=== PATIENT | female | born 1945 | race Two or more races ===

== ENCOUNTER → 2016-10-30 | Outpatient (CLI) | payer MEDICARE, OTHER ==
[2016-10-30 16:27] LABS: Basophils # (auto) 0 uL; Basophils % (auto) 0.2 % (0.0-2.0); DEFINITIVE VIEW TRANSMISSION; Eosinophils # (auto) 0.2 uL; Eosinophils % (auto) 1.4 % (0.0-7.0); Hematocrit 42.8 % (36.0-46.0); Hemoglobin 13.4 g/dL (12.2-16.2); Lymphocytes # (auto) 5.6 uL; Lymphocytes % (auto) 47.1 % (10.0-50.0); Mean Corpuscular Hemoglobin 27.7 pg (28.0-32.0); Mean Corpuscular Hgb Conc. 31.4 g/dL (32.0-36.0); Mean Corpuscular Volume 88.2 fL (80.0-100.0); Mean Platelet Volume 9.1 fL (7.4-10.4); Monocytes # (auto) 0.4 uL; Monocytes % (auto) 3.6 % (0.0-12.0); Neutrophils # (auto) 5.7 uL; Neutrophils % (auto) 47.7 % (37.0-80.0); Platelet Count (auto) 306 10^3/uL (140-450); Urine Bilirubin Negative (Negative); Urine Color Yellow (Yellow); Urine Glucose Normal (Normal); Urine Ketone Negative (Negative); Urine Nitrite Negative (Negative); Urine Urobilinogen Normal (Negative); Urine pH 5.5 (5.0-8.0); White Blood Cell 11.9 10^3/uL (4.4-10.8)
[2016-10-30 16:47] LABS: Urine Blood 1+ /uL (Negative)
[2016-10-30 17:07] LABS: BUN/Creatinine Ratio 34.3; Bilirubin, Direct 0.1 mg/dL (0-0.2); Bilirubin, Total 0.3 mg/dL (0.2-1.0); Calcium 9.7 mg/dL (8.5-10.1); Potassium 3.8 mmol/L (3.5-5.1); Total Protein 7.2 g/dL (6.4-8.2)
== END | disposition home or self-care (01) ==
LOC: LAB 09:15
PROVIDERS: ATTEND Internal Medicine Cardiovascular Disease
DX: I10 Essential (primary) hypertension (principal); E78.00 Pure hypercholesterolemia, unspecified; K74.1 Hepatic sclerosis; E11.9 Type 2 diabetes mellitus without complications; E03.9 Hypothyroidism, unspecified; D64.9 Anemia, unspecified; E55.9 Vitamin D deficiency, unspecified; N39.0 Urinary tract infection, site not specified
CPT/HCPCS: 36415; 80048; 80061; 80076; 81003; 82306; 83036; 84443; 85025

== ENCOUNTER → 2016-11-20 | Outpatient (CLI) | payer MEDICARE, OTHER ==
[2016-11-20 12:58] LABS: Urine Bilirubin Negative (Negative); Urine Blood TRACE /uL (Negative); Urine Color Yellow (Yellow); Urine Glucose Normal (Normal); Urine Ketone Negative (Negative); Urine Nitrite Negative (Negative); Urine Urobilinogen Normal (Negative); Urine pH 5.5 (5.0-8.0)
[2016-11-21 00:39] LABS: Basophils # (auto) 0.1 uL; Basophils % (auto) 0.7 % (0.0-2.0); DEFINITIVE VIEW TRANSMISSION; Eosinophils # (auto) 0.2 uL; Eosinophils % (auto) 1.9 % (0.0-7.0); Hematocrit 40.2 % (36.0-46.0); Hemoglobin 12.2 g/dL (12.2-16.2); Lymphocytes # (auto) 4.1 uL; Lymphocytes % (auto) 44.8 % (10.0-50.0); Mean Corpuscular Hemoglobin 27.2 pg (28.0-32.0); Mean Corpuscular Hgb Conc. 30.5 g/dL (32.0-36.0); Mean Corpuscular Volume 89.3 fL (80.0-100.0); Mean Platelet Volume 8.8 fL (7.4-10.4); Monocytes # (auto) 0.4 uL; Monocytes % (auto) 3.9 % (0.0-12.0); Neutrophils # (auto) 4.5 uL; Neutrophils % (auto) 48.7 % (37.0-80.0); Platelet Count (auto) 271 10^3/uL (140-450); White Blood Cell 9.1 10^3/uL (4.4-10.8)
== END | disposition home or self-care (01) ==
LOC: LAB 08:34
PROVIDERS: ATTEND Internal Medicine Cardiovascular Disease
DX: D64.9 Anemia, unspecified (principal); N39.0 Urinary tract infection, site not specified
CPT/HCPCS: 36415; 81003; 87086

== ENCOUNTER → 2017-01-09 | Outpatient (CLI) | payer MEDICARE, OTHER | END | disposition home or self-care (01) | LOC: HDHVI->DVH 11:55 | PROVIDERS: ATTEND Internal Medicine Cardiovascular Disease | DX: Z01.818 Encounter for other preprocedural examination (principal) | CPT/HCPCS: 93306 ==

== ENCOUNTER → 2017-02-06 | Outpatient (CLI) | payer MEDICARE, OTHER ==
[~2017-02-06] VITALS: Ht 154.9 cm; Wt 130.2 kg
[~2017-02-06] MED LIST: ADENOSINE IV STA; GIVE UN DILUTED IV STA
== END | disposition home or self-care (01) ==
LOC: HDHVI->DVH 09:52
PROVIDERS: ATTEND Internal Medicine Cardiovascular Disease
DX: I10 Essential (primary) hypertension (principal); E78.00 Pure hypercholesterolemia, unspecified; I42.9 Cardiomyopathy, unspecified
CPT/HCPCS: 78452; 93005; 96374; 96375; A9500; J0153

== ENCOUNTER → 2017-05-15 | Outpatient (CLI) | payer MEDICARE, OTHER ==
[2017-05-15 12:17] LABS: Basophils # (auto) 0 uL; Basophils % (auto) 0.3 % (0.0-2.0); CONDITION Y; Eosinophils # (auto) 0.1 uL; Eosinophils % (auto) 1.3 % (0.0-7.0); Hematocrit 40.2 % (36.0-46.0); Hemoglobin 13.5 g/dL (12.2-16.2); Lymphocytes # (auto) 4.1 uL; Lymphocytes % (auto) 45.9 % (10.0-50.0); Mean Corpuscular Hemoglobin 29.2 pg (28.0-32.0); Mean Corpuscular Hgb Conc. 33.5 g/dL (32.0-36.0); Mean Corpuscular Volume 87.3 fL (80.0-100.0); Mean Platelet Volume 9.6 fL (7.4-10.4); Monocytes # (auto) 0.5 uL; Monocytes % (auto) 5.3 % (0.0-12.0); Neutrophils # (auto) 4.2 uL; Neutrophils % (auto) 47.2 % (37.0-80.0); Platelet Count (auto) 257 10^3/uL (140-450); Red Cell Distribution Width 15.3 % (11.6-16.0); Urine Bilirubin Negative (Negative); Urine Color Yellow (Yellow); Urine Glucose Normal (Normal); Urine Ketone Negative (Negative); Urine Nitrite Negative (Negative); Urine pH 5.5 (5.0-8.0)
[2017-05-15 12:41] LABS: Urine Blood 1+ /uL (Negative)
[2017-05-15 12:47] LABS: Albumin 3.6 g/dL (3.4-5.0); BUN/Creatinine Ratio 29.6; Bilirubin, Total 0.3 mg/dL (0.2-1.0); Calcium 9.3 mg/dL (8.5-10.1); Potassium 4.1 mmol/L (3.5-5.1); Total Protein 6.9 g/dL (6.4-8.2)
== END | disposition home or self-care (01) ==
LOC: LAB 08:33
PROVIDERS: ATTEND Internal Medicine Cardiovascular Disease
DX: E78.00 Pure hypercholesterolemia, unspecified (principal); I10 Essential (primary) hypertension; E11.9 Type 2 diabetes mellitus without complications; D64.9 Anemia, unspecified; N39.0 Urinary tract infection, site not specified
CPT/HCPCS: 36415; 80053; 80061; 81003; 83036; 85025; 87086

== ENCOUNTER → 2017-08-27 | Outpatient (CLI) | payer MEDICARE, OTHER ==
[2017-08-27 13:16] LABS: Free T4 (Free Thyroxine) 1.02 ng/dL (0.89-1.76)
== END | disposition home or self-care (01) ==
LOC: LAB 09:04
PROVIDERS: ATTEND Internal Medicine Cardiovascular Disease
DX: E55.9 Vitamin D deficiency, unspecified (principal); D51.9 Vitamin B12 deficiency anemia, unspecified; E03.9 Hypothyroidism, unspecified
CPT/HCPCS: 36415; 82306; 82607; 84439; 84443

== ENCOUNTER → 2017-12-24 | Outpatient (CLI) | payer MEDICARE, OTHER ==
[2017-12-24 12:21] LABS: Albumin 3.9 g/dL (3.4-5.0); BUN/Creatinine Ratio 21.3; Bilirubin, Total 0.5 mg/dL (0.2-1.0); Total Protein 7.2 g/dL (6.4-8.2)
== END | disposition home or self-care (01) ==
LOC: LAB 08:29
PROVIDERS: ATTEND Internal Medicine Cardiovascular Disease
DX: E78.00 Pure hypercholesterolemia, unspecified (principal); I10 Essential (primary) hypertension
CPT/HCPCS: 36415; 80053; 80061

== ENCOUNTER → 2018-09-04 | Outpatient (CLI) | payer MEDICARE, OTHER ==
[2018-09-04 14:52] LABS: Potassium 4.2 mmol/L (3.5-5.1)
[2018-09-04 14:59] LABS: Free T4 (Free Thyroxine) 0.96 ng/dL (0.89-1.76)
[2018-09-04 15:04] LABS: Albumin 3.8 g/dL (3.4-5.0); BUN/Creatinine Ratio 22.4; Bilirubin, Total 0.5 mg/dL (0.2-1.0); Calcium 8.8 mg/dL (8.5-10.1); Total Protein 6.9 g/dL (6.4-8.2)
[2018-09-04 15:09] LABS: Basophils # (auto) 0 uL; Basophils % (auto) 0.3 % (0.0-2.0); Eosinophils # (auto) 0.1 uL; Eosinophils % (auto) 1.7 % (0.0-7.0); Hematocrit 43.2 % (36.0-46.0); Hemoglobin 14.1 g/dL (12.2-16.2); Lymphocytes # (auto) 3.8 uL; Lymphocytes % (auto) 43.1 % (10.0-50.0); Mean Corpuscular Hemoglobin 29.4 pg (28.0-32.0); Mean Corpuscular Hgb Conc. 32.6 g/dL (32.0-36.0); Mean Corpuscular Volume 90.4 fL (80.0-100.0); Monocytes # (auto) 0.4 uL; Monocytes % (auto) 5.1 % (0.0-12.0); Neutrophils # (auto) 4.4 uL; Neutrophils % (auto) 49.8 % (37.0-80.0); Nucleated Red Blood Cells % 0.5 %; Platelet Count (auto) 219 10^3/uL (140-450); Red Blood Cells 4.78 10^6/uL (4.0-5.20); Red Cell Distribution Width 15.3 % (11.8-14.3); White Blood Cell 8.8 10^3/uL (4.4-10.8)
== END | disposition home or self-care (01) ==
LOC: LAB 08:32
PROVIDERS: ATTEND Internal Medicine
DX: E78.5 Hyperlipidemia, unspecified (principal); D64.9 Anemia, unspecified; I10 Essential (primary) hypertension; E03.9 Hypothyroidism, unspecified; E11.9 Type 2 diabetes mellitus without complications; E55.9 Vitamin D deficiency, unspecified; D51.9 Vitamin B12 deficiency anemia, unspecified; N39.0 Urinary tract infection, site not specified
CPT/HCPCS: 36415; 80053; 80061; 82306; 82607; 83036; 84439; 84443; 85025; 87086

== ENCOUNTER → 2018-11-04 | Outpatient (CLI) | payer MEDICARE, OTHER ==
[~2018-11-04] MED LIST changes: -ADENOSINE IV STA; +ALBUTEROL SULF 2.5 MG/0.5ML(0.5%) NEB SOLN NEB ONE; +ALBUTEROL SULF 2.5 MG/0.5ML(0.5%) NEB SOLN ONE; +FUROSEMIDE 40 MG/4 ML VIAL IV ONE; +FUROSEMIDE 40 MG/4 ML VIAL ONE; -GIVE UN DILUTED IV STA; +POTASSIUM CHL 20 Meq TABLET PO ONE; +cefTRIAXone 1GM/50ML D5W 0 ML IV ONE; +cefTRIAXone SOD 1,000 MG VL IV ONE; +cefTRIAXone SOD 1,000 MG VL ONE
[2018-11-04 12:00] VITALS: BP 121/82
--- NOTE | 2018-11-04 12:00 | NUR ---
CHF PT TO [facility]F CLINIC FOR MD MONROY ORDERED IGM ROCEPHIN IVP, LASIX 40MG IVP, MED NEB WITH ALBUTEROL FOR SOB, POTASSIUM CHLORIDE 20 MEQ PO AND CHEST XRAY. URI , CHF.COPD.
--- NOTE | 2018-11-04 12:28 | NUR ---
CHF MEB NEB TX WITH ALBUTEROL FOR SOB.
--- NOTE | 2018-11-04 12:35 | NUR ---
CHF IV PUSH ROCEPHIN 1GM OVER 5 MIN
--- NOTE | 2018-11-04 12:45 | NUR ---
CHF LASIX 40MG IVP. LABS DRAWN PER MD ORDERED BEFORE INITIAL IVP. PT STATES BREATHING BETTER.
--- NOTE | 2018-11-04 13:00 | NUR ---
CHF POTASSIUM CHLORIDE 20 MEQ PO
[2018-11-04 13:15] VITALS: BP 114/56
--- NOTE | 2018-11-04 13:15 | NUR ---
CHF Discharge Instructions See e-MAR for any mediations given with this visit. Patient education given on disease process. Patient verbalized understanding. Previous labs reviewed. Patient discharged in stable condition with after care instructions and follow up appointment. DR. MONROY FOLLOW UP TOMORROW.
[2018-11-04 15:40] LABS: Basophils # (auto) 0 uL; Eosinophils # (auto) 0.1 uL; Hematocrit 41.5 % (36.0-46.0); Monocytes # (auto) 0.5 uL; White Blood Cell 9.7 10^3/uL (4.4-10.8)
[2018-11-04 15:43] LABS: Basophils % (auto) 0.3 % (0.0-2.0); Chloride 104 mmol/L (98-107); Hemoglobin 12.9 g/dL (12.2-16.2); Lymphocytes % (auto) 31.6 % (10.0-50.0); Mean Corpuscular Hemoglobin 26.1 pg (28.0-32.0); Monocytes % (auto) 4.8 % (0.0-12.0); Neutrophils % (auto) 62.3 % (37.0-80.0); Nucleated Red Blood Cells % 0.4 %; Platelet Count (auto) 215 10^3/uL (140-450); Potassium 4.1 mmol/L (3.5-5.1); Red Blood Cells 4.93 10^6/uL (4.0-5.20); Red Cell Distribution Width 16.6 % (11.8-14.3); Sodium 138 mmol/L (136-145)
[2018-11-04 15:52] LABS: Anion Gap 5 (5-15); BUN/Creatinine Ratio 26.5; Blood Urea Nitrogen 27 mg/dL (7-18); Calcium 8.6 mg/dL (8.5-10.1); Carbon Dioxide 29 mmol/L (21-32); GFR African American > 60 mL/min; GFR Non-African American 56 mL/min; Glucose 116 mg/dL (74-106)
== END | disposition home or self-care (01) ==
LOC: Rad HDHVI 12:10
PROVIDERS: ATTEND Internal Medicine Cardiovascular Disease
DX: I11.0 Hypertensive heart disease with heart failure (principal); I50.9 Heart failure, unspecified; D64.9 Anemia, unspecified; J44.9 Chronic obstructive pulmonary disease, unspecified; J06.9 Acute upper respiratory infection, unspecified; E78.5 Hyperlipidemia, unspecified; E03.9 Hypothyroidism, unspecified; E11.9 Type 2 diabetes mellitus without complications; E66.01 Morbid (severe) obesity due to excess calories; I42.9 Cardiomyopathy, unspecified; E78.00 Pure hypercholesterolemia, unspecified
CPT/HCPCS: 36415; 71046; 80048; 83880; 85025; 94640; 96374; 96375; G0463; J0696; J1940; J7611

== ENCOUNTER → 2018-11-05 | Outpatient (CLI) | payer MEDICARE, OTHER ==
[~2018-11-05] MED LIST changes: -ALBUTEROL SULF 2.5 MG/0.5ML(0.5%) NEB SOLN NEB ONE; +POTASSIUM CHL 10 Meq TABLET PO ONE; -cefTRIAXone 1GM/50ML D5W 0 ML IV ONE; -cefTRIAXone SOD 1,000 MG VL IV ONE; -cefTRIAXone SOD 1,000 MG VL ONE
[2018-11-05 11:39] VITALS: BP 133/52
[2018-11-05 12:30] VITALS: BP 121/61
--- NOTE | 2018-11-05 12:30 | NUR ---
IN TO CLINC AFTER SEEING PHYSICIAN FOR NEBULIZER TREATMENT AND IV LASIX. PT ALSO HAD LABS DRAWN TODAY PER MD ORDER. PT REPORTS LESS SOB OVERALL SINCE TREATMENT YESTERDAY. SPO2 81 % ON ROOM AIR UP TO 93 % ON 2LPM OXYGEN. NEBULIZER ADMINISTERED AND PT TOLERATED WELL. MUCH LESS COUGHING AND INTERRUPTIONS FOR HER TO CATCH HER BREATH TODAY. ADMINISTERED IV LASIX WITH GOOD RESULTS UP TO VOID IMMEDIATELY. DISCHARGED TO [facility] IN NO DISTRESS. Discharge Instructions See e-MAR for any mediations given with this visit. Patient education given on disease process. Patient verbalized understanding. Previous labs reviewed. Patient discharged in stable condition with after care instructions and follow up appointment 11/06/18 MEDICATION ADMINISTRATION ALBUTEROL 2.5 MG VIA NEBULIZER AT 1140 LASIX 40 MG IVP AT 1150 POTASSIUM 20 MEQ PO AT 1200
[2018-11-05 15:39] LABS: BUN/Creatinine Ratio 26.3; Calcium 8.4 mg/dL (8.5-10.1); Potassium 4.2 mmol/L (3.5-5.1)
== END | disposition home or self-care (01) ==
LOC: LAB 11:26
PROVIDERS: ATTEND Internal Medicine
DX: I11.0 Hypertensive heart disease with heart failure (principal); I50.9 Heart failure, unspecified; J44.9 Chronic obstructive pulmonary disease, unspecified; E11.9 Type 2 diabetes mellitus without complications; K74.1 Hepatic sclerosis; I42.9 Cardiomyopathy, unspecified; E78.5 Hyperlipidemia, unspecified; E78.00 Pure hypercholesterolemia, unspecified; E03.9 Hypothyroidism, unspecified; E66.01 Morbid (severe) obesity due to excess calories; M13.852 Other specified arthritis, left hip; M13.851 Other specified arthritis, right hip
CPT/HCPCS: 36415; 80048; 94640; 96374; G0463; J1940; J7611

== ENCOUNTER → 2018-11-06 | Outpatient (CLI) | payer MEDICARE, OTHER ==
[~2018-11-06] VITALS: Ht 30.5 cm; Wt 0.5 kg
[~2018-11-06] MED LIST changes: -POTASSIUM CHL 10 Meq TABLET PO ONE
[2018-11-06 09:50] VITALS: BP 105/59
[2018-11-06 10:20] VITALS: BP 123/47
--- NOTE | 2018-11-06 10:20 | NUR ---
IN TO CLINIC AFTER SEEING DR VICK FOR THIRD CONSECUTIVE DAY. PT REPORTS THAT SHE HAS OXYGEN AT HOME NOW, BUT IS CURRENTLY NOT WEARING IT AND SPO2 80 % ON ROOM AIR. APPLIED OXYGEN AT 2 LPM AND SPO2 UP TO 92 %. ADMINISTERED NEBULIZER TREATMENT FOR WHEEZES WITH GOOD RESPONSE, NO AUDIBLE WHEEZES POST TREATMENT. LABS DRAWN AND SENT. ADMINISTERED LASIX PER ORDER. REINFORCED NEED FOR OXYGEN AT ALL TIMES. DISCUSSED SIDE EFFECTS OF LOW OXYGENATION. REVIEWED CURRENT MEDICATION REGIMEN INCLUDING PRESCRIPTIONS TO BE STARTED PER MD ORDER TODAY. REPEAT BACK INSTRUCTIONS OBTAINED FROM PATIENT. DISCHARGED TO [facility]ARE OF [facility] WITH PORTABLE OXYGEN IN USE AT 2 LPM. Discharge Instructions See e-MAR for any mediations given with this visit. Patient education given on disease process. Patient verbalized understanding. Previous labs reviewed. Patient discharged in stable condition with after care instructions and follow up appointment FOR 11/09/18. MEDICATION ADMINISTRATION MED NEB ALBUTEROL VIA NEBULIZER AT 1008 FUROSEMIDE 40 MG IVP AT 1005 POTASSIUM 20 MEQ PO AT 1009
[2018-11-06 12:14] LABS: Chloride 105 mmol/L (98-107); Potassium 3.9 mmol/L (3.5-5.1); Sodium 141 mmol/L (136-145)
[2018-11-06 12:20] LABS: Anion Gap 7 (5-15); BUN/Creatinine Ratio 26.4; Blood Urea Nitrogen 28 mg/dL (7-18); Calcium 8.4 mg/dL (8.5-10.1); Carbon Dioxide 29 mmol/L (21-32); GFR Non-African American 54 mL/min; Glucose 125 mg/dL (74-106)
[2018-11-06 12:22] LABS: GFR African American > 60 mL/min
== END | disposition home or self-care (01) ==
LOC: CHF HDHVI 09:56
PROVIDERS: ATTEND Internal Medicine Cardiovascular Disease
DX: I11.0 Hypertensive heart disease with heart failure (principal); I50.9 Heart failure, unspecified; J44.9 Chronic obstructive pulmonary disease, unspecified; E11.9 Type 2 diabetes mellitus without complications; I42.9 Cardiomyopathy, unspecified; E03.9 Hypothyroidism, unspecified; E78.00 Pure hypercholesterolemia, unspecified; E78.5 Hyperlipidemia, unspecified; E66.01 Morbid (severe) obesity due to excess calories; K74.1 Hepatic sclerosis; M13.852 Other specified arthritis, left hip; M13.851 Other specified arthritis, right hip
CPT/HCPCS: 36415; 80048; 94640; 96374; G0463; J1940; J7611

== ENCOUNTER → 2018-11-09 | Outpatient (CLI) | payer MEDICARE, OTHER | END | disposition home or self-care (01) | LOC: Rad HDHVI 12:43 | PROVIDERS: ATTEND Internal Medicine | DX: I07.1 Rheumatic tricuspid insufficiency (principal); I11.0 Hypertensive heart disease with heart failure; I50.32 Chronic diastolic (congestive) heart failure; I27.20 Pulmonary hypertension, unspecified | CPT/HCPCS: 71046; 93306 ==

== ENCOUNTER → 2018-11-19 | Outpatient (CLI) | payer MEDICARE, OTHER ==
[2018-11-19 12:27] LABS: Potassium 4.3 mmol/L (3.5-5.1)
[2018-11-19 12:29] LABS: BUN/Creatinine Ratio 27.1
== END | disposition home or self-care (01) ==
LOC: LAB 09:37
PROVIDERS: ATTEND Internal Medicine
DX: I10 Essential (primary) hypertension (principal)
CPT/HCPCS: 36415; 80048

== ENCOUNTER → 2018-12-22 | Outpatient (CLI) | payer MEDICARE, OTHER ==
[~2018-12-22] MED LIST changes: -ALBUTEROL SULF 2.5 MG/0.5ML(0.5%) NEB SOLN ONE; +ANGIOMAX 250 MG VIAL IV ONE; -FUROSEMIDE 40 MG/4 ML VIAL IV ONE; -FUROSEMIDE 40 MG/4 ML VIAL ONE; +IOHEXOL 350 MG/ML 100ML IJ ONE; +MIDAZOLAM HCL 1MG/1ML-2 ML VIAL ONE; -POTASSIUM CHL 20 Meq TABLET PO ONE; +SODIUM CHL 0.9% 0 ML ONE; +fentaNYL CITRATE 100 MCG/2 ML VL ONE
[2018-12-22 11:15] VITALS: BP 130/55
[2018-12-22 11:30] VITALS: BP 130/55
--- NOTE | 2018-12-22 11:30 | NUR ---
Pre-Op Discharge Summary: See e-MAR for any medications given for this visit. Pre-op orders received and carried out per MD of EKG, LABS and chest xrays. Patient given a copy of EKG with instructions to go to [facility] out patient for further follow up care.
[2018-12-22 12:25] LABS: INR 0.92 (0.9-1.15); Partial Thromboplastin Time 24.5 sec (23.78-33.04); Prothrombin Time 9.9 sec (9.27-12.13)
[2018-12-22 12:27] LABS: Basophils # (auto) 0 uL; Basophils % (auto) 0.3 % (0.0-2.0); Eosinophils # (auto) 0.2 uL; Hemoglobin 15.3 g/dL (12.2-16.2); Monocytes # (auto) 0.6 uL
[2018-12-22 12:30] LABS: Eosinophils % (auto) 1.3 % (0.0-7.0); Hematocrit 47.6 % (36.0-46.0); Lymphocytes # (auto) 6.9 uL; Lymphocytes % (auto) 49.2 % (10.0-50.0); Mean Corpuscular Hemoglobin 26.4 pg (28.0-32.0); Mean Corpuscular Hgb Conc. 32.2 g/dL (32.0-36.0); Neutrophils # (auto) 6.4 uL; Neutrophils % (auto) 45.2 % (37.0-80.0); Nucleated Red Blood Cells % 0.5 %; Platelet Count (auto) 223 10^3/uL (140-450); Red Blood Cells 5.81 10^6/uL (4.0-5.20); Red Cell Distribution Width 18.5 % (11.8-14.3); White Blood Cell 14.1 10^3/uL (4.4-10.8)
[2018-12-22 12:32] LABS: Potassium 3.6 mmol/L (3.5-5.1)
[2018-12-22 12:44] LABS: BUN/Creatinine Ratio 27.7; Calcium 9.3 mg/dL (8.5-10.1)
== END | disposition home or self-care (01) ==
LOC: Rad HDHVI 10:51
PROVIDERS: ATTEND Internal Medicine Cardiovascular Disease
DX: Z01.812 Encounter for preprocedural laboratory examination (principal); D64.9 Anemia, unspecified; R79.1 Abnormal coagulation profile; I10 Essential (primary) hypertension; I70.0 Atherosclerosis of aorta
CPT/HCPCS: 36415; 71046; 80048; 85025; 85610; 85730; 93005; G0463

== ENCOUNTER 2018-12-24 06:29 | Day surgery (SDC) | payer MEDICARE, OTHER ==
[~2018-12-24] VITALS: Ht 154.9 cm; Wt 120.7 kg
[2018-12-24] MEDS ORDERED: LIDOCAINE 2%HCL (LOCAL ANESTH.) INJ 20ML MDV ONE (07:12)
[2018-12-24] MEDS ORDERED: IOHEXOL 350 MG/ML 100ML IJ ONE (07:12)
[2018-12-24] MEDS ORDERED: EPINEPHrine HCL 1 MG/10 ML SYRG ONE (07:59)
[2018-12-24] MEDS ORDERED: ATROPINE SULFATE 1 MG/1 ML VIAL ONE (07:59)
== END 2018-12-24 10:22 | disposition home or self-care (01) ==
LOC: CATH 06:29
PROVIDERS: ATTEND Internal Medicine Cardiovascular Disease
DX: I25.10 Atherosclerotic heart disease of native coronary artery without angina pectoris (principal); I27.20 Pulmonary hypertension, unspecified; E78.5 Hyperlipidemia, unspecified; J44.9 Chronic obstructive pulmonary disease, unspecified; I11.0 Hypertensive heart disease with heart failure; I50.9 Heart failure, unspecified; K21.9 Gastro-esophageal reflux disease without esophagitis; M19.90 Unspecified osteoarthritis, unspecified site; Z86.73 Personal history of transient ischemic attack (TIA), and cerebral infarction without residual deficits; Z82.49 Family history of ischemic heart disease and other diseases of the circulatory system; Z80.9 Family history of malignant neoplasm, unspecified; Z87.891 Personal history of nicotine dependence; Z79.899 Other long term (current) drug therapy; Z98.890 Other specified postprocedural states
CPT/HCPCS: 93460; A6257; C1769; C1894; J1644; J2250; J3010; J7030; Q9967; 99152; J0461

== ENCOUNTER → 2019-01-05 | Outpatient (CLI) | payer MEDICARE, OTHER ==
[~2019-01-05] MED LIST changes: -ANGIOMAX 250 MG VIAL IV ONE; +DOBUTamine 1000MCG/ML 250 ML IV ONE; +FUROSEMIDE INJECTION 10 ML ONE; -IOHEXOL 350 MG/ML 100ML IJ ONE; +METOLAZONE 5 MG TAB ONE; -MIDAZOLAM HCL 1MG/1ML-2 ML VIAL ONE; -SODIUM CHL 0.9% 0 ML ONE; -fentaNYL CITRATE 100 MCG/2 ML VL ONE
[2019-01-05 10:00] VITALS: BP 137/74
[2019-01-05 11:30] VITALS: BP 123/74
--- NOTE | 2019-01-05 11:30 | NUR ---
IN TO CLINIC FOR PAH FOLLOWUP. VS WNL. DYSPNEA NOTED WITH EXERTION. PREVIOUS LABS REVIEWED AND ADDITIONAL LABS DRAWN AND SENT. CARDIODYNAMICS DONE AND REVIEWED. 6MWT DONE AND REVIEWED. AROLDO RODRIGUEZ REVIEWED CURRENT MEDS AND STATUS . PT TO START PAH MEDICATION ADCIRCA AND LETARIS. PRIOR AUTH IN PROGRESS.
[2019-01-05 16:11] LABS: Basophils # (auto) 0 uL; Eosinophils # (auto) 0.1 uL; Monocytes # (auto) 0.5 uL
[2019-01-05 16:13] LABS: Basophils % (auto) 0.5 % (0.0-2.0); Eosinophils % (auto) 1.5 % (0.0-7.0); Hematocrit 45.4 % (36.0-46.0); Hemoglobin 14.7 g/dL (12.2-16.2); Lymphocytes # (auto) 3.7 uL; Lymphocytes % (auto) 38.7 % (10.0-50.0); Mean Corpuscular Hemoglobin 26.4 pg (28.0-32.0); Mean Corpuscular Hgb Conc. 32.5 g/dL (32.0-36.0); Mean Corpuscular Volume 81.5 fL (80.0-100.0); Neutrophils # (auto) 5.2 uL; Neutrophils % (auto) 54.3 % (37.0-80.0); Nucleated Red Blood Cells % 0.6 %; Platelet Count (auto) 228 10^3/uL (140-450); Red Blood Cells 5.58 10^6/uL (4.0-5.20); Red Cell Distribution Width 19.8 % (11.8-14.3); White Blood Cell 9.5 10^3/uL (4.4-10.8)
[2019-01-05 16:21] LABS: Albumin 3.9 g/dL (3.4-5.0); BUN/Creatinine Ratio 27.2; Calcium 9.5 mg/dL (8.5-10.1); Magnesium 2.7 mg/dL (1.6-2.6); Potassium 4.2 mmol/L (3.5-5.1)
[2019-01-05 16:24] LABS: Bilirubin, Total 0.3 mg/dL (0.2-1.0); Total Protein 7.4 g/dL (6.4-8.2)
== END | disposition home or self-care (01) ==
LOC: CHF HDHVI 09:18
PROVIDERS: ATTEND Internal Medicine Cardiovascular Disease
DX: E55.9 Vitamin D deficiency, unspecified (principal); D64.9 Anemia, unspecified; I10 Essential (primary) hypertension; I27.20 Pulmonary hypertension, unspecified; E87.70 Fluid overload, unspecified
CPT/HCPCS: 36415; 80053; 82306; 83735; 85025; G0463

== ENCOUNTER → 2019-02-18 | Outpatient (CLI) | payer MEDICARE, OTHER ==
[~2019-02-18] MED LIST changes: -DOBUTamine 1000MCG/ML 250 ML IV ONE; +FUROSEMIDE 40 MG/4 ML VIAL IV ONE; +FUROSEMIDE 40 MG/4 ML VIAL ONE; -FUROSEMIDE INJECTION 10 ML ONE; -METOLAZONE 5 MG TAB ONE; +POTASSIUM CHL 10 Meq TABLET PO ONE
[2019-02-18 10:20] VITALS: BP 133/47
[2019-02-18 11:00] VITALS: BP 116/61
--- NOTE | 2019-02-18 11:00 | NUR ---
CHF Discharge Instructions See e-MAR for any mediations given with this visit. Patient education given on disease process. Patient verbalized understanding. Previous labs reviewed. Patient discharged in stable condition with after care instructions and follow up appointment TOMORROW. NOTE LASIX IVP ADMIN BY RUTH RODRIGUEZ. POTASSIUM PO ADMIN BY RUTH RODRIGUEZ.
[2019-02-18 12:57] LABS: Magnesium 2.7 mg/dL (1.6-2.6)
== END | disposition home or self-care (01) ==
LOC: CHF HDHVI 10:22
PROVIDERS: ATTEND Internal Medicine Cardiovascular Disease
DX: I50.9 Heart failure, unspecified (principal); I10 Essential (primary) hypertension; E87.4 Mixed disorder of acid-base balance; E61.2 Magnesium deficiency; I27.21 Secondary pulmonary arterial hypertension; R60.0 Localized edema
CPT/HCPCS: 36415; 82565; 83735; 84132; 84520; 96374; G0463; J1940

== ENCOUNTER → 2019-02-19 | Outpatient (CLI) | payer MEDICARE, OTHER ==
[2019-02-19 10:00] VITALS: BP 108/55
[2019-02-19 10:45] VITALS: BP 117/46
--- NOTE | 2019-02-19 10:45 | NUR ---
CHF CLINIC Discharge Instructions See e-MAR for any mediations given with this visit. Patient education given on disease process. Patient verbalized understanding. Previous labs reviewed. Patient discharged in stable condition with after care instructions and follow up appointment ON FRIDAY. NOTE LASIX IVP ADMIN BY RUTH RODRIGUEZ POTASSIUM PO ADMIN BY RUTH RODRIGUEZ
== END | disposition home or self-care (01) ==
LOC: CHF HDHVI 10:00
PROVIDERS: ATTEND Internal Medicine Cardiovascular Disease
DX: I27.21 Secondary pulmonary arterial hypertension (principal); E87.70 Fluid overload, unspecified; R60.0 Localized edema; I10 Essential (primary) hypertension; I50.9 Heart failure, unspecified
CPT/HCPCS: 96374; G0463; J1940

== ENCOUNTER → 2019-02-24 | Outpatient (CLI) | payer MEDICARE, OTHER ==
[2019-02-24 11:55] VITALS: BP 94/41
[2019-02-24 12:30] VITALS: BP 93/43
--- NOTE | 2019-02-24 12:30 | NUR ---
CHF CLINIC Discharge Instructions See e-MAR for any mediations given with this visit. Patient education given on disease process. Patient verbalized understanding. Previous labs reviewed. Patient discharged in stable condition with after care instructions and follow up appointment ONE MONTH. NOTE CARDIODYNAMICS PERFORMED BY NATHANAEL PEARSON AND RESULTS REVIEWED WITH PATIENT BY AROLDO RODRIGUEZ.
== END | disposition home or self-care (01) ==
LOC: CHF HDHVI 12:35
PROVIDERS: ATTEND Internal Medicine Cardiovascular Disease
DX: I27.21 Secondary pulmonary arterial hypertension (principal); E87.70 Fluid overload, unspecified
CPT/HCPCS: 93701; G0463

== ENCOUNTER → 2019-03-01 | Outpatient (CLI) | payer MEDICARE, OTHER ==
[2019-03-01 16:26] LABS: Basophils # (auto) 0 uL; Basophils % (auto) 0.5 % (0.0-2.0); Eosinophils # (auto) 0.1 uL; Eosinophils % (auto) 1.7 % (0.0-7.0); Hematocrit 40.5 % (36.0-46.0); Hemoglobin 13.3 g/dL (12.2-16.2); Lymphocytes # (auto) 2.9 uL; Lymphocytes % (auto) 38.3 % (10.0-50.0); Mean Corpuscular Hemoglobin 29.4 pg (28.0-32.0); Mean Corpuscular Hgb Conc. 32.7 g/dL (32.0-36.0); Mean Corpuscular Volume 89.9 fL (80.0-100.0); Monocytes # (auto) 0.4 uL; Monocytes % (auto) 5.1 % (0.0-12.0); Neutrophils # (auto) 4.1 uL; Neutrophils % (auto) 54.4 % (37.0-80.0); Nucleated Red Blood Cells % 0.4 %; Platelet Count (auto) 224 10^3/uL (140-450); Red Blood Cells 4.51 10^6/uL (4.0-5.20); White Blood Cell 7.5 10^3/uL (4.4-10.8)
[2019-03-01 16:31] LABS: BUN/Creatinine Ratio 24.8; Calcium 9.1 mg/dL (8.5-10.1)
== END | disposition home or self-care (01) ==
LOC: LAB 10:37
PROVIDERS: ATTEND Internal Medicine
DX: D64.9 Anemia, unspecified (principal); I10 Essential (primary) hypertension; D51.9 Vitamin B12 deficiency anemia, unspecified
CPT/HCPCS: 36415; 80048; 82607; 85025

== ENCOUNTER → 2019-04-05 | Outpatient (CLI) | payer MEDICARE, OTHER | END | disposition home or self-care (01) | LOC: Rad HDHVI 11:12 | PROVIDERS: ATTEND Internal Medicine Cardiovascular Disease | DX: I08.1 Rheumatic disorders of both mitral and tricuspid valves (principal); J44.9 Chronic obstructive pulmonary disease, unspecified; I27.0 Primary pulmonary hypertension | CPT/HCPCS: 93306 ==

== ENCOUNTER → 2020-01-12 | Outpatient (CLI) | payer MEDICARE, OTHER | END | disposition home or self-care (01) | LOC: Rad HDHVI 11:02 | PROVIDERS: ATTEND Internal Medicine Cardiovascular Disease | DX: I08.1 Rheumatic disorders of both mitral and tricuspid valves (principal); I11.0 Hypertensive heart disease with heart failure; I50.32 Chronic diastolic (congestive) heart failure; I27.21 Secondary pulmonary arterial hypertension | CPT/HCPCS: 93306 ==

== ENCOUNTER → 2020-01-31 | Outpatient (CLI) | payer MEDICARE, OTHER ==
[~2020-01-31] VITALS: Ht 154.9 cm; Wt 120.2 kg
[~2020-01-31] MED LIST changes: +ADENOSINE 101 MG in GIVE UN-DILUTED 0 ML IV ONE; +ADENOSINE 90 MG/30 ML INJ IV ONE; -FUROSEMIDE 40 MG/4 ML VIAL IV ONE; -FUROSEMIDE 40 MG/4 ML VIAL ONE; -POTASSIUM CHL 10 Meq TABLET PO ONE
[2020-01-31 12:05] LABS: Urine Blood Negative /uL (Negative); Urine Specific Gravity 1.028 (1.001-1.035)
[2020-01-31 12:06] LABS: Basophils # (auto) 0 10 ^3/uL (0-0.2); Basophils % (auto) 0.4 % (0.0-2.0); Eosinophils # (auto) 0.2 10 ^3/uL (0-0.8); Eosinophils % (auto) 3.2 % (0.0-7.0); Hematocrit 39.2 % (36.0-46.0); Hemoglobin 12.9 g/dL (12.2-16.2); Lymphocytes # (auto) 3.1 10 ^3/uL (0.4-5.4); Lymphocytes % (auto) 48.6 % (10.0-50.0); Mean Corpuscular Hemoglobin 29.2 pg (28.0-32.0); Mean Corpuscular Hgb Conc. 32.8 g/dL (32.0-36.0); Mean Corpuscular Volume 89.1 fL (80.0-100.0); Monocytes # (auto) 0.3 10 ^3/uL (0-1.3); Monocytes % (auto) 5.2 % (0.0-12.0); Neutrophils # (auto) 2.7 10 ^3/uL (1.6-8.6); Neutrophils % (auto) 42.6 % (37.0-80.0); Nucleated Red Blood Cells % 0.3 %; Platelet Count (auto) 158 10^3/uL (140-450); Red Blood Cells 4.41 10^6/uL (4.0-5.20); Red Cell Distribution Width 15.7 % (11.8-14.3); White Blood Cell 6.4 10^3/uL (4.4-10.8)
[2020-01-31 12:13] LABS: Potassium 4.1 mmol/L (3.5-5.1)
[2020-01-31 12:21] LABS: Albumin 3.3 g/dL (3.4-5.0); BUN/Creatinine Ratio 30.4; Bilirubin, Total 0.4 mg/dL (0.2-1.0); Calcium 8.4 mg/dL (8.5-10.1); Free T4 (Free Thyroxine) 1.04 ng/dL (0.89-1.76); Total Protein 6.5 g/dL (6.4-8.2)
== END | disposition home or self-care (01) ==
LOC: Rad HDHVI 08:19
PROVIDERS: ATTEND Internal Medicine Cardiovascular Disease
DX: I11.0 Hypertensive heart disease with heart failure (principal); I50.32 Chronic diastolic (congestive) heart failure; I27.21 Secondary pulmonary arterial hypertension; E03.9 Hypothyroidism, unspecified; K90.9 Intestinal malabsorption, unspecified; N39.0 Urinary tract infection, site not specified; D51.9 Vitamin B12 deficiency anemia, unspecified; Z79.899 Other long term (current) drug therapy
CPT/HCPCS: 36415; 78452; 80053; 80061; 81003; 82306; 82607; 83036; 84439; 84443; 85025; 87086; 93005; 96374; 96375; A9500; J0153

== ENCOUNTER → 2020-12-19 | Outpatient (CLI) | payer MEDICARE, OTHER | END | disposition home or self-care (01) | LOC: Rad HDHVI 11:16 | PROVIDERS: ATTEND Internal Medicine Cardiovascular Disease | DX: I08.1 Rheumatic disorders of both mitral and tricuspid valves (principal); I27.21 Secondary pulmonary arterial hypertension; I50.33 Acute on chronic diastolic (congestive) heart failure; R07.89 Other chest pain | CPT/HCPCS: 93306 ==

== ENCOUNTER → 2021-01-11 | Outpatient (CLI) | payer MEDICARE, OTHER ==
[~2021-01-11] VITALS: Ht 154.9 cm; Wt 122.5 kg
[~2021-01-11] MED LIST changes: -ADENOSINE 101 MG in GIVE UN-DILUTED 0 ML IV ONE; +ADENOSINE 103 MG in GIVE UN-DILUTED 0 ML IV ONE
== END | disposition home or self-care (01) ==
LOC: Rad HDHVI 09:30
PROVIDERS: ATTEND Internal Medicine Cardiovascular Disease
DX: I11.0 Hypertensive heart disease with heart failure (principal); I50.33 Acute on chronic diastolic (congestive) heart failure; R00.2 Palpitations; E78.5 Hyperlipidemia, unspecified; J44.9 Chronic obstructive pulmonary disease, unspecified; E78.00 Pure hypercholesterolemia, unspecified
CPT/HCPCS: 78452; 93005; 96374; 96375; A9500; J0153

== ENCOUNTER → 2021-02-16 | Outpatient (CLI) | payer MEDICARE, OTHER ==
[2021-02-16 11:56] LABS: Urine Blood Negative /uL (Negative); Urine Specific Gravity 1.021 (1.001-1.035)
[2021-02-16 12:00] LABS: Hematocrit 40.2 % (36.0-46.0); Hemoglobin 13.4 g/dL (12.2-16.2); Mean Corpuscular Hemoglobin 29.2 pg (28.0-32.0); Mean Corpuscular Hgb Conc. 33.3 g/dL (32.0-36.0); Mean Corpuscular Volume 87.8 fL (80.0-100.0); Platelet Count (auto) 206 10^3/uL (140-450); Red Blood Cells 4.58 10^6/uL (4.0-5.20); Red Cell Distribution Width 15.6 % (11.8-14.3); White Blood Cell 13.7 10^3/uL (4.4-10.8)
[2021-02-16 12:10] LABS: Basophils % (manual) 0 (0.0-2.0); Blast Cells 0; Metamyelocytes % 0; Myelocytes % 0; Potassium 4.7 mmol/L (3.5-5.1); Promyelocytes % 0
[2021-02-16 12:19] LABS: Albumin 3.9 g/dL (3.4-5.0); BUN/Creatinine Ratio 34.2; Bilirubin, Total 0.3 mg/dL (0.2-1.0); Calcium 9.4 mg/dL (8.5-10.1); Free T4 (Free Thyroxine) 0.8 ng/dL (0.89-1.76); Total Protein 6.9 g/dL (6.4-8.2)
[2021-02-16 12:59] LABS: Band Neutrophils % (manual) 4; Eosinophils % (manual) 4 (0-7); Lymphocytes % (manual) 50 (10.0-50.0); Monocytes % (manual) 5 (0-12); Reactive Lymphocytes 5
== END | disposition home or self-care (01) ==
LOC: LAB 08:01
PROVIDERS: ATTEND Internal Medicine Cardiovascular Disease
DX: D51.3 Other dietary vitamin B12 deficiency anemia (principal); I10 Essential (primary) hypertension; E11.9 Type 2 diabetes mellitus without complications; E55.9 Vitamin D deficiency, unspecified; R00.2 Palpitations; D64.9 Anemia, unspecified; R53.1 Weakness; R30.0 Dysuria
CPT/HCPCS: 36415; 80053; 80061; 81003; 82306; 82607; 83036; 84439; 84443; 85007; 85027; 87086